=== PATIENT | female | born 1965 | race Caucasian/White ===

== ENCOUNTER 2024-01-02 21:34 | Emergency (ER) | payer OTHER ==
[~2024-01-02] VITALS: Ht 162.6 cm; Wt 60.0 kg
[2024-01-02 21:36] VITALS: O2SAT 97
[2024-01-02 23:23] VITALS: TEMP 37.16964
[2024-01-03 01:54] LABS: BASOPHILS % 0.2 % (0.0-2.0); CALCIUM 9.5 mg/dL (8.7-10.4); CARBON DIOXIDE 26 mEq/L (21-32); CHLORIDE 106 mEq/L (98-107); CREATININE 0.7 mg/dL (0.6-1.0); EOSINOPHILS % 0.2 % (0.0-5.0); GLUCOSE 184 mg/dL (70-105); HEMATOCRIT. 40.1 % (36.0-48.0); HEMOGLOBIN. 13.5 g/dL (12.0-16.0); LYMPHOCYTES % 13.3 % (20.0-50.0); MEAN CORPUSCULAR HEMOGLOBIN 29.2 pg (28.0-32.0); MEAN CORPUSCULAR HGB CONC 33.7 g/dL (31.0-37.0); MEAN CORPUSCULAR VOLUME 86.8 fL (81.0-99.0); MEAN PLATELET VOLUME 9.9 fl (7.4-10.4); MONOCYTES % 4.3 % (2.0-8.0); PLATELET 187 x1000/uL (130-400); RED BLOOD CELL COUNT 4.61 mill/uL (4.2-5.4); RED CELL DISTRIBUTION WIDTH 13.3 % (11.6-14.6); SODIUM 139 mEq/L (136-145); UREA NITROGEN BLOOD 13 mg/dL (9-23)
[2024-01-03 02:00] LABS: TROPONIN I HIGH SENSITIVITY < 4 ng/L (3.0-34)
[2024-01-03 02:28] LABS: INR 0.9; PROTHROMBIN TIME 10.6 sec (9.6-11.0)
[2024-01-03 03:12] VITALS: BP 118/52; PULSE 58; RESP 11; O2SAT 98
[2024-01-03 04:52] LABS: CLARITY URINE CLOUDY (CLEAR); COLOR URINE YELLOW (YELLOW); GLUCOSE URINE NEGATIVE (NEGATIVE); KETONES URINE 3+ (NEGATIVE); LEUKOCYTE ESTERASE URINE 3+ (NEGATIVE); NITRITE URINE NEGATIVE (NEGATIVE); OCCULT BLOOD URINE NEGATIVE (NEGATIVE); PH URINE 6.5 (4.5-8.0); PROTEIN URINE 1+ (NEGATIVE); SPECIFIC GRAVITY URINE 1.027 (1.005-1.030)
[2024-01-03 05:44] LABS: SQUAMOUS EPITHELIAL CELL URINE 3+ /lpf (RARE/1+)
[2024-01-03 05:53] LABS: WBC URINE 15-25 /hpf (0-2)
[2024-01-03 05:54] LABS: BACTERIA URINE 1+
[2024-01-03 05:55] LABS: TRICHOMONAS URINE 1+
== END 2024-01-03 03:37 | disposition home or self-care (01) ==
LOC: ER 21:34
DX: R55 Syncope and collapse (principal); E11.9 Type 2 diabetes mellitus without complications
CPT/HCPCS: 36415; 71045; 80048; 81003; 83880; 84484; 85025; 93005; 99285